=== PATIENT | male | born 1980 | race Caucasian/White ===

== ENCOUNTER → 2017-10-25 | Outpatient (REF) | payer BC | LOC: M LAB REF 16:59 | PROVIDERS: ATTEND Family Medicine | DX: J02.9 Acute pharyngitis, unspecified (principal) ==

== ENCOUNTER → 2024-10-17 | Outpatient (CLI) | payer BC | LOC: M SLEEP HO 11:39 | PROVIDERS: ATTEND Nurse Practitioner Adult Health | DX: G47.33 Obstructive sleep apnea (adult) (pediatric) (principal); R06.83 Snoring ==

== ENCOUNTER → 2024-11-19 | Outpatient (CLI) | payer BC | LOC: M PLAIMG 10:57 | PROVIDERS: ATTEND Nurse Practitioner Adult Health | DX: M51.26 Other intervertebral disc displacement, lumbar region (principal); M54.16 Radiculopathy, lumbar region ==

== ENCOUNTER → 2025-07-05 | Outpatient (CLI) | payer OTHER, BC | LOC: M SLEEP HO 11:01 | PROVIDERS: ATTEND Nurse Practitioner Family | DX: G47.33 Obstructive sleep apnea (adult) (pediatric) (principal) ==